=== PATIENT | female | born 1950 | race Caucasian/White ===

== ENCOUNTER 2017-02-14 07:07 | Day surgery (SDC) | payer BC ==
[~2017-02-14 07:07] MED LIST: Acetaminophen TAB* 325 MG PO PRN; Buffered Lidocaine 0.9% SYRIN* 5 ML/SYR SYRINGE INTRADERM ONE
[2017-02-14] MEDS ORDERED: Midazolam* 1 MG/ML 2 ML VIAL (2 MG) ONE (07:54)
[2017-02-14 10:09] VITALS: BP 140/71
[2017-02-14] MEDS ORDERED: acetaZOLAMIDE TAB* 250 MG ONE (11:56)
[2017-02-14] MEDS ORDERED: Neomycin/Polymy/Dex OPTH.SUSP* MAXITROL 0.1% 5 ML ONE (11:57)
[2017-02-14] MEDS ORDERED: Proparacaine 0.5% OPHTH.SOL* 15 ML BTL ONE (11:57)
[2017-02-14] MEDS ORDERED: Lidocaine 1% MPF* 2 ML VIAL ONE (11:57)
[2017-02-14] MEDS ORDERED: Ketorolac 0.5% OPHTH (NF) 0.5 % 5 ML BTL ONE (11:57)
[2017-02-14] MEDS ORDERED: Cyclopentolate 1% OPTH.SOL* 2 ML BTL ONE (11:57)
[2017-02-14] MEDS ORDERED: Phenylephrine 2.5% OPTH.SOL* 2 ML BTL ONE (11:57)
[2017-02-14] MEDS ORDERED: Lidocaine 2% EPI 1:200000 MPF* 20 ML VIAL ONE (11:57)
[2017-02-14] MEDS ORDERED: Povidone Iodine 5% OPTH* 30 ML BTL ONE (11:57)
--- NOTE | 2017-02-15 04:01 | OP ---
DATE OF OPERATION: 02/14/17 [facility] DATE OF : 54 SURGEON: Luis Damon MD PREOPERATIVE DIAGNOSIS: Cataract, right eye. POSTOPERATIVE DIAGNOSIS: Cataract, right eye. OPERATIVE PROCEDURE: Extracapsular cataract extraction with intraocular lens implant, right eye. DESCRIPTION OF PROCEDURE: The patient was brought to the operating room after being given 1/2% Alcaine with epinephrine drops in the preoperative area. The eye was prepped and draped in the usual sterile fashion. Sterile drape and eyelid speculum were placed. Again, topical 1/2% Alcaine with epinephrine was given. A paracentesis incision was made at the 9 o'clock position with the No.75 blade. Clear cornea incision 2.2 x 2.2-mm was created at the 12 o'clock position starting at the anterior limbus using the 2.2-mm keratome. The anterior chamber was irrigated with 0.4 mL of 1% non-preservative intracameral lidocaine and filled with DisCoVisc. A capsulorrhexis was completed using the cystotome and the Utrata forceps. Hydrodissection was performed with balanced salt solution. The lens nucleus was removed with the Phacoemulsification handpiece without incident. Cortex was removed with the irrigation-aspiration handpiece. The capsular bag was re-inflated using DisCoVisc and an [id number] implant was inserted with the shooter. The irrigation-aspiration handpiece was used to remove all residual DisCoVisc. The eye was refilled with balanced salt solution and the wound checked and found to be watertight. Topical Maxitrol drops were given. [id number]/[facility] #: [id number] [facility]
== END 2017-02-14 10:08 | disposition home or self-care (01) ==
LOC: OREAST 07:07
PROVIDERS: ATTEND Specialist
DX: H25.811 Combined forms of age-related cataract, right eye (principal); E78.00 Pure hypercholesterolemia, unspecified; M79.7 Fibromyalgia; I10 Essential (primary) hypertension; Z68.29 Body mass index [BMI] 29.0-29.9, adult; E11.9 Type 2 diabetes mellitus without complications; K21.9 Gastro-esophageal reflux disease without esophagitis; B00.9 Herpesviral infection, unspecified
CPT/HCPCS: A9270-GY; J2250; V2632

== ENCOUNTER 2017-03-01 09:52 | Emergency (ER) | payer BC ==
--- OUTSIDE RECORDS SUMMARY | 2017-03-01 10:01 | XMS REPORT ---
:1950 External Reference #:[id number] Author Organization [facility] Address [address] [place] [address] Phone [phone] Care Team Providers Name Role Phone Chiquita Summers M.D. Primary Care Physician Unavailable Payers Type Date Identification Numbers Payment Provider Subscriber Commercial Policy Number: [id number] [place] Plan Anastasiia Lopez PayID: [id number] [address] [place] [address] Problems Date Description Provider Status Onset: Herpes simplex Active Onset: Fibromyalgia Active Onset: Essential hypertension Active Onset: Chronic interstitial cystitis Active Onset: 06/09/2016 Combined form of senile cataract Luis Damon M.D. Active Family History Date Family Member(s) Problem(s) Comments Father Cataract Mother Cataract First Sister Cataract Social History Type Date Description Comments Marital Status Legal Status: Occupation [employer] Work Status Full-Time Employment ETOH Use Occasionally consumes alcohol Smoking Patient has never smoked Recreational Drug Use Denies Drug Use Daily Caffeine Consumes on average 1 soda per day Allergies, Adverse Reactions, Alerts Date Description Reaction Status Severity Comments 06/09/2016 NKDA active Medications Medication Date Status Form Strength Qnty SIG Indications Ordering Provider Systane Ultra 12/20 Active Solution 0.4-0.3% 10ml 1 drop right Luis Easley /2017 eye every 2 Arleo, hours M.D. Ciprofloxacin 1208 Active Solution 0.3% 10ml drop right Luis Easley [facility] eye three Arleo, times a day M.DAlize Ketorolac 02/02 Active Solution 0.4% 5ml instill one Luis Easley Tromethamine drop in the Arleo, right eye M.D. three times a day starting the day before surgery Prednisolone 02/02 Active Suspension 1% 15ml 1 drops Luis Tracee Acetate right eye Arleo, three times M.D. a day. taper as directed Tramadol HCL Active Tablets 50mg Unknown /0000 Nitrofurantoin Active Capsules 100mg take 1 Unknown Monohyd Macro /0000 capsule by mouth After [place] Valacyclovir Active Tablets 500mg Unknown HCL 0000 Vitamin B-12 Active Tablets 500mcg twice a day Unknown / Natural Calcium Active Capsules 250mg 2 by mouth Unknown every day Vitamin D-1000 Active Tablets 1000Unit Unknown Maximum /0000 Strength Fish Oil Active Capsules 1000mg 1 by mouth Unknown /0000 every day Spirulina Active Tablets 500mg Unknown /0000 Vitamin C Active Capsules 1000mg Once A Day Unknown W/Vitamin E Ranitidine HCL Active Tablets 150mg Unknown / Omeprazole Active Capsules DR 40mg Take 1 Unknown /0000 Capsule By Mouth 30 Minutes Before Breakfast Results Description No Information Procedures Date CPT Code Description Status 02/14/2017 93778 Extracapsular Cataract Extraction W/Intraocular Lens Completed 02/02/2017 60357 Ophthalmic Biometry Completed 02/02/2017 33482 Ophthalmic Biometry Completed 02/02/2017 44117 Scanning Computerized Opthalmic Diagnostic Posterior Completed Seg Retina 02/02/2017 10211 Computerized Corneal Topography Completed 01/22/2017 99453 Est Patient Intermediate Exam Completed 12/11/2016 25024 Cancelled Appointment Completed 06/09/2016 10434 New Patient Comprehensive Exam Completed Encounters Type Date Location Provider CPT E/M Dx Office Visit 02/02/2017 Luis Damon MD, Luis Damon, [id number] H25.811 12:15p trinity Patel H25.812 Plan of Care Future Appointment(s):03/01/2017 9:15 am - Luis Damon M.D. at Luis Damon [facility], pc02/28/2017 7:00 am - Luis Damon M.D. at Luis [facility]on [facility], 02/15/2017 - Luis Damon M.D.H25.812 Combined forms of age-related cataract, left eyeComments:Smoking can increase the risk of developing or worsening any eye related disease, as well as affect your overall health. If you are a smoker, we strongly recommend that you quit.If you are not a smoker, we strongly recommend that you do not start. Dense cataract in the left eye.Follow up:For surgery. Please keep post op appointments as scheduled.Z96.1 Presence of intraocular lensComments:The artifical lens implant in your right eye appears to be stable. Since this is the first day after surgery, your right eye is still dilated and the vision will still be slightly blurry. The dilation will go down over the next day or two. Continue taking your eye drops as directed on the surgical calendar. If you have any questions, please call our office.
[2017-03-01 10:09] VITALS: BP 134/62
--- NOTE | 2017-03-01 10:47 | UC ---
Ear Complaint HPI - HPI Summary HPI Summary: 67 y/o WF presents with for bilateral ear pain. She tells me that 4 days ago she developed left ear pain. This persisted, so she saw her PCP 2 days ago and was told it looked normal. That night she had increased pain in her left ear with clear/yellow drainage. Yesterday her right ear began to hurt as well. Today she also has a headache and mild dizziness. Denies fever, chills, SOB, chest pain, abdominal pain. - History of Current Complaint Chief Complaint: UCEar Stated Complaint: LEFT EAR DRAINAGE, PAIN IN EARS Time Seen by Provider: 03/01/17 10:47 Hx Obtained From: Patient Onset/Duration: Gradual Onset Severity Initially: Mild Severity Currently: Moderate Pain Intensity: 5 Pain Scale Used: 0-10 Numeric - Allergies/Home Medications Allergies/Adverse Reactions: Allergies Allergy/AdvReac Type Severity Reaction Status Date / Time Ciprofloxacin [From Cipro] Allergy cognative Verified 03/01/17 10:05 effects PMH/Surg Hx/FS Hx/Imm Hx GI/ History: Gastroesophageal Reflux - Surgical History Surgical History: Yes Surgery Procedure, Year, and Place: appendectomy;. tonsillectomy x2 as child, and age 32 ;. 2016 tongue biopsy - Family History Known Family History: Positive: None Family History: R & n/C - Social History Occupation: Retired Lives: With Family Alcohol Use: None Alcohol Amount: 1 PER MONTH Substance Use Type: None Smoking Status (MU): Never Smoked Tobacco Have You Smoked in the Last Year: No Review of Systems Constitutional: Negative Skin: Negative Eyes: Negative ENT: Ear Ache Respiratory: Negative Cardiovascular: Negative Neurological: Headache All Other Systems Reviewed And Are Negative: Yes Physical Exam Triage Information Reviewed: Yes Appearance: Well-Appearing, No Pain Distress, Well-Nourished Vital Signs: Initial Vital Signs Temp 98 F 03/01/17 10:06 Pulse 93 03/01/17 10:06 Resp 16 03/01/17 10:06 BP 134/62 03/01/17 10:06 Pulse Ox 100 03/01/17 10:06 Vital Signs Reviewed: Yes Eyes: Positive: Conjunctiva Clear. Negative: Conjunctiva Inflamed, Discharge ENT: Positive: Pharynx normal, Uvula midline, Other - Right ear: Ear canal with mild erythema. TM with mild fluid behind. No erythema, bulging, or dullness. Left ear: Ear canal is moderate swelling and clear/yellow drainage. TM not visualized. Postauricular pain bilaterally. Tragus pain bilaterally. No erythema or edema around mastoid.. Negative: Pharyngeal erythema, Nasal congestion, Nasal drainage, Tonsillar swelling, Tonsillar exudate, Sinus tenderness Neck: Positive: Supple, Nontender, No Lymphadenopathy Respiratory: Positive: Chest non-tender, Lungs clear, Normal breath sounds, No respiratory distress, No accessory muscle use Cardiovascular: Positive: RRR, No Murmur, Pulses Normal Neurological: Positive: Alert Psychological: Positive: Age Appropriate Behavior Skin: Negative: rashes Ear Complaint Course/Dx - Course Course Of Treatment: Otitis media left ear. Otitis externa left ear - Differential Dx/Diagnosis Differential Diagnosis/HQI/PQRI: Otitis Externa, Otitis Media, Perforated TM, URI Provider Diagnoses: Otitis media left ear. Otitis externa left ear Discharge - Discharge Plan Condition: Stable Disposition: HOME Prescriptions: Amoxicillin/Clavulanate TAB* [Augmentin TAB 875*] 875 mg PO BID #20 tab Neomyc/Polym/HC 1% OTIC SUSP* [Cortisporin Otic Susp 1%*] 4 drop LEFT EAR TID # 1 btl Patient Education Materials: Otitis Externa (ED), Otitis Media (ED) Referrals: Chiquita Summers MD [Primary Care Provider] - Additional Instructions: If you develop a fever, shortness of breath, chest pain, new or worsening symptoms - please call your PCP or go to the ED. 1) Take tylenol OTC or ibuprofen OTC for fevers and discomfort.
== END 2017-03-01 11:18 | disposition home or self-care (01) ==
LOC: UCEAST 09:52
DX: H66.92 Otitis media, unspecified, left ear (principal); H60.92 Unspecified otitis externa, left ear
CPT/HCPCS: 99212; G0463

== ENCOUNTER 2017-05-02 09:37 | Day surgery (SDC) | payer BC ==
[2017-05-02] MEDS ORDERED: Midazolam* 1 MG/ML 2 ML VIAL (2 MG) ONE ×2 (11:48→11:56)
[2017-05-02 12:19] VITALS: BP 134/76
--- NOTE | 2017-05-02 13:14 | OP ---
DATE OF OPERATION: 05/02/2017. DATE OF : 1950. SURGEON: Luis Damon M.D. PREOPERATIVE DIAGNOSIS: Cataract left eye. POSTOPERATIVE DIAGNOSIS: Cataract left eye. OPERATIVE PROCEDURE: Extracapsular cataract extraction with intraocular lens implant left eye. PROCEDURE: The patient was brought to the operating room after being given 1/2% Alcaine with epineph rine drops in the preoperative area. The eye was prepped and draped in the usual sterile fashion. S terile drape and eyelid speculum were placed. Again, topical 1/2% Alcaine with epinephrine was given . A paracentesis incision was made at the 3 o'clock position with the No.75 blade. Clear cornea inc ision 2.2 x 2.2-mm was created at the 6 o'clock position starting at the anterior limbus using the 2. 2-mm keratome. The anterior chamber was irrigated with 0.4 mL of 1% non-preservative intracameral li docaine and filled with DisCoVisc. A capsulorrhexis was completed using the cystotome and the Utrata forceps. Hydrodissection was performed with balanced salt solution. The lens nucleus was removed wi th the Phacoemulsification handpiece without incident. Cortex was removed with the irrigation-aspira tion handpiece. The capsular bag was re-inflated using DisCoVisc and an [id number] implant was insert ed with the shooter. The irrigation-aspiration handpiece was used to remove all residual DisCoVisc. The eye was refilled with balanced salt solution and the wound checked and found to be watertight. Topical Maxitrol drops were given. [id number]/[facility] #: [id number]
[2017-05-02] MEDS ORDERED: Lidocaine 2% EPI 1:200000 MPF* 20 ML VIAL ONE (13:42)
[2017-05-02] MEDS ORDERED: acetaZOLAMIDE TAB* 250 MG ONE (13:42)
[2017-05-02] MEDS ORDERED: Lidocaine 1% MPF* 2 ML VIAL ONE (13:42)
[2017-05-02] MEDS ORDERED: Povidone Iodine 5% OPTH* 30 ML BTL ONE (13:42)
[2017-05-02] MEDS ORDERED: Phenylephrine 2.5% OPTH.SOL* 2 ML BTL ONE (13:42)
[2017-05-02] MEDS ORDERED: Cyclopentolate 1% OPTH.SOL* 2 ML BTL ONE (13:42)
[2017-05-02] MEDS ORDERED: Neomycin/Polymy/Dex OPTH.SUSP* MAXITROL 0.1% 5 ML ONE (13:42)
[2017-05-02] MEDS ORDERED: Ketorolac 0.5% OPHTH (NF) 0.5 % 5 ML BTL ONE (13:42)
[2017-05-02] MEDS ORDERED: Proparacaine 0.5% OPHTH.SOL* 15 ML BTL ONE (13:43)
== END 2017-05-02 12:11 | disposition home or self-care (01) ==
LOC: OREAST 09:37
PROVIDERS: ATTEND Specialist
DX: H25.812 Combined forms of age-related cataract, left eye (principal); H04.123 Dry eye syndrome of bilateral lacrimal glands; I10 Essential (primary) hypertension; E11.9 Type 2 diabetes mellitus without complications; Z86.718 Personal history of other venous thrombosis and embolism; M79.7 Fibromyalgia; K21.9 Gastro-esophageal reflux disease without esophagitis; Z87.440 Personal history of urinary (tract) infections
CPT/HCPCS: A9270-GY; J2250; V2632